=== PATIENT | male | born 1950 | race Caucasian/White ===

== ENCOUNTER 2020-05-16 14:03 | Emergency (ER) | payer MEDICARE, SELFPAY ==
--- NOTE | 2020-05-16 14:08 | ED.BACK ---
HPI - Back Pain/Injury General Chief Complaint: Back Pain/Injury Stated Complaint: back injury, fall in January Time Seen by Provider: 05/16/20 14:07 Source: patient Mode of arrival: EMS Limitations: no limitations History of Present Illness HPI Narrative: 6 weeks ago patient fell from hypoglycemia but now having leg weakness. patient unable to move his legs when standing MD elicited complaint: back injury Pertinent past history: prior back pain Onset (ago): week(s) Timing: constant Severity: moderate Location: lumbar spine Related Data Allergies Allergy/AdvReac Type Severity Reaction Status Date / Time No Known Allergies Allergy Verified 05/16/20 14:15 Review of Systems Constitutional: Constitutional: Reports no additional constitutional complaints Eyes: Eyes: Reports no additional eye complaints ENT: Denies dizziness Cardiovascular: Cardiovascular: Reports no additional cardiovascular complaints Respiratory: Respiratory: Reports as per HPI Gastrointestinal: Gastrointestinal: Reports no additional gastrointestinal complaints Musculoskeletal: Musculoskeletal: Reports no additional musculoskeletal complaints Integumentary/Breasts: Skin/Breast: Denies rash Neurologic: Reports system reviewed and no additional complaints, except as documented, Denies dizziness and Denies Sensory deficit (Neuro) Psychiatric: Psychiatric: Denies anxiety [facility] Past Medical History Medical History (Updated 05/16/20 @ 16:57 by Bakari Sanchez MD) Diabetes 1.5, managed as type 2 High cholesterol Surgical History (Updated 05/16/20 @ 14:20 by Darnell Bearden) History of cholecystectomy Social History Social History Advance Directives: No Advance Directives Information Provided: Yes Physical Exam Vital Signs: Vital Signs: Last Vital Signs Temp 98 F 05/16/20 14:14 Pulse 80 05/16/20 14:14 Resp 13 05/16/20 14:14 BP 112/49 L 05/16/20 14:14 Pulse Ox 99 05/16/20 14:14 Body Mass Index 48.2 Const: Nutritional Appearance: obese Orientation/consciousness: oriented to person and patient oriented x3 Limitations: no limitations HENMT: Head: Yes normal to inspection Ears: external ears normal General nose exam: Normal external nose present Mouth: Normal oral and palatal mucosa present and oropharynx normal Throat: Yes posterior oropharynx normal Eyes: General: appearance normal, both eyes and all related structures Neck: Other: supple Neck: Yes normal visual inspection Chest: Chest palpation & inspection: normal inspection of the chest Resp: Auscultation: clear to auscultation bilaterally Cardio: Jugular venous distension: no JVD Rate: regular rate Rhythm: regular rhythm Heart sounds: S1 normal heart sound present and S2 normal heart sound present GI: Inspection: Yes normal to inspection Palpation (GI): Soft to palpation, nontender and No hepatosplenomegaly present Auscultation: normal bowel sounds : General: Yes no CVA tenderness Back/Spine/Pelvis: Back: no CVA tenderness Skin: General skin exam: no rashes or lesions noted Neuro: Other: Patient is weak bilateral legs, both great toes are weak to dorsiflexion and plantar flexion. General: oriented to person and patient oriented x3 Cranial nerves: Yes CN's II-XII intact bilaterally Sensory Exam: No Sensory deficit (Neuro) Extrem: General: Yes normal to inspection Psych: Appearance: grossly normal Course Course Course Narrative: with history of recent fall and now with bilateral leg weakness with MRI back Reevaluation(s) Reevaluation #1: could not fit patient into MRI will try lumbar CT MDM - Back Pain/Injury MDM Narrative Medical decision making narrative: patient with moderate canal narrowing will have patient follow up with neurology Imaging Data CT lumbar spine: Radiologist's impression: [address] [id number] [address] Scan Report Signed Patient: Yung Shelton FMR#: [id number] : 9Acct:[id number] Age/Sex: 69 / MADM Date: 05/16/20 Loc: HO.ED Attending Dr: Ordering Physician: Bakari Sanchez MD Date of Service: 05/16/20 Procedure(s): CT lumbar spine wo con Accession Number(s): [id number] cc: Bakari Sanchez MD~ EXAMINATION: CT LUMBAR SPINE WITHOUT CONTRAST CLINICAL INFORMATION: Injury. Lower extremity weakness. COMPARISON: None TECHNIQUE: Multidetector volumetric imaging of the lumbar spine performed without IV contrast. Coronal and sagittal reformatted images are obtained and reviewed. This CT examination was performed using dose optimization techniques as appropriate, variously including the following: *Automated exposure control *Adjustment of mA and/or kV according to patient size (this includes techniques or standardized protocols for targeted exams where dose is matched to indication/reason for exam; i.e. extremities or head) *Use of iterative reconstruction technique DLP; 916 mGy-cm FINDINGS: Osteopenia. No acute fracture or subluxation. Vertebral body heights are maintained. There is disc space narrowing throughout, with vacuum disc phenomenon most prominent at L1-L2, L3-L4, and L4-L5. Prominent Schmorl's node of the inferior endplate of L3. There is advanced facet arthropathy throughout the lumbar spine. Evaluation of the disc levels is limited on CT. That said, there is mild to moderate spinal canal narrowing at the L2-L3 level associated with disc bulge and hypertrophy of the ligamentum flavum. Moderate spinal canal narrowing and neuroforaminal noted at L3-L4. There is likely neuroforaminal narrowing bilaterally at L4-L5. The sacroiliac joints are symmetric. The visualized sacrum is intact. Aortic calcifications are noted. There is a left midpole renal calculus which measures 0.9 cm. This measures 820 Hounsfield units. There is a right lower pole 0.4 cm renal calculus. No hydronephrosis. No acute abnormality of the visualized abdomen. Normal appendix noted. CT/CT lumbar spine wo con IMPRESSION: Moderate multilevel degenerative changes throughout the lumbar spine. Disc level evaluation is limited on CT, but there is appearance of spinal canal narrowing at L2-L3 and L3-L4. Neuroforaminal narrowing seen at L4-L5 as well. Discharge Plan Discharge Clinical Impression: Lumbar radiculopathy Patient Disposition: Home, Self-Care Instructions: Lumbar Radiculopathy (ED) Additional Instructions: Patient to follow up with neurology needs to call for follow up Referrals: Maverick Bocanegra MD [Physician] - 2 days
[2020-05-16 14:14] VITALS: BP 112/49; PULSE 80; RESP 13; TEMP 36.6; O2SAT 99; BMI 48.2
--- NOTE | 2020-05-16 15:58 | PC.NURSE ---
Pt to MRI at this time
--- NOTE | 2020-05-16 16:21 | CT_ITS ---
EXAMINATION: CT LUMBAR SPINE WITHOUT CONTRAST CLINICAL INFORMATION: Injury. Lower extremity weakness. COMPARISON: None TECHNIQUE: Multidetector volumetric imaging of the lumbar spine performed without IV contrast. Coronal and sagittal reformatted images are obtained and reviewed. This CT examination was performed using dose optimization techniques as appropriate, variously including the following: *Automated exposure control *Adjustment of mA and/or kV according to patient size (this includes techniques or standardized protocols for targeted exams where dose is matched to indication/reason for exam; i.e. extremities or head) *Use of iterative reconstruction technique DLP; 916 mGy-cm FINDINGS: Osteopenia. No acute fracture or subluxation. Vertebral body heights are maintained. There is disc space narrowing throughout, with vacuum disc phenomenon most prominent at L1-L2, L3-L4, and L4-L5. Prominent Schmorl's node of the inferior endplate of L3. There is advanced facet arthropathy throughout the lumbar spine. Evaluation of the disc levels is limited on CT. That said, there is mild to moderate spinal canal narrowing at the L2-L3 level associated with disc bulge and hypertrophy of the ligamentum flavum. Moderate spinal canal narrowing and neuroforaminal noted at L3-L4. There is likely neuroforaminal narrowing bilaterally at L4-L5. The sacroiliac joints are symmetric. The visualized sacrum is intact. Aortic calcifications are noted. There is a left midpole renal calculus which measures 0.9 cm. This measures 820 Hounsfield units. There is a right lower pole 0.4 cm renal calculus. No hydronephrosis. No acute abnormality of the visualized abdomen. Normal appendix noted. CT/CT lumbar spine wo con IMPRESSION: Moderate multilevel degenerative changes throughout the lumbar spine. Disc level evaluation is limited on CT, but there is appearance of spinal canal narrowing at L2-L3 and L3-L4. Neuroforaminal narrowing seen at L4-L5 as well. Bilateral renal calculi noted.
[2020-05-16 17:01] VITALS: BP 106/45; PULSE 82; RESP 24; TEMP 36.8; O2SAT 96
== END 2020-05-16 18:24 | disposition home or self-care (01) ==
PROVIDERS: Emergency Provider Emergency Medicine; PCP Nurse Practitioner Adult Health
DX: M54.16 Radiculopathy, lumbar region (principal); Z79.899 Other long term (current) drug therapy
CPT/HCPCS: 72131; 99283; 99284; 99285

== ENCOUNTER 2021-06-25 00:58 | Outpatient (REF) | payer SELFPAY | END 2021-06-25 00:59 | disposition home or self-care (01) | LOC: HO.MMNH2L 00:58 | PROVIDERS: Visit Provider Family Medicine | DX: Z13.89 Encounter for screening for other disorder (principal) ==